=== PATIENT | male | born 1995 | race Hispanic/Latino ===

== ENCOUNTER 2019-04-18 19:18 | Emergency (ER) | payer OTHER ==
[2019-04-18] MEDS ORDERED: IBUPROFEN 600 MG TABLET ONE (20:26)
[2019-04-18 20:31] LABS: RAPID GROUP A STREP NEGATIVE (NEGATIVE)
== END 2019-04-18 20:59 | disposition home or self-care (01) ==
LOC: EDH 19:18
DX: J06.9 Acute upper respiratory infection, unspecified (principal)
CPT/HCPCS: 87804; 87880